=== PATIENT | female | born 1960 | race Caucasian/White ===

== ENCOUNTER 2019-03-17 13:24 | Emergency (ER) | payer BC ==
[~2019-03-17] VITALS: Ht 157.5 cm; Wt 71.2 kg
[~2019-03-17 13:24] MED LIST: AMBIEN10 MG PO; LOMOTIL1 EA; ULTRAM 50MG50 MG PO; Z.0.BENTYL10 MG
[2019-03-17] MEDS ORDERED: EPINEPHRINE HCL 1:1000 1ML 1 MG/ML AMP ONE (13:37)
[2019-03-17] MEDS ORDERED: METHYLPREDNISOLONE SOD SUCC 125 MG/2ML VIAL ONE (13:37)
[2019-03-17] MEDS ORDERED: EPINEPHRINE HCL 1:1000 1ML 1 MG/ML AMP SQ ONE (13:45)
[2019-03-17] MEDS ORDERED: METHYLPREDNISOLONE SOD SUCC 125 MG/2ML VIAL IV ONE (13:45)
[2019-03-17] MEDS ORDERED: PREDNISONE20 MG PO (14:17)
[2019-03-17] MEDS ORDERED: DIFLUCAN150 MG PO (14:18)
[2019-03-17 14:21] VITALS: BP 135/74
== END 2019-03-17 14:27 | disposition home or self-care (01) ==
LOC: FSED 13:24
DX: L50.0 Allergic urticaria (principal); Z87.19 Personal history of other diseases of the digestive system
CPT/HCPCS: 99283; J0171; J2930

== ENCOUNTER → 2020-03-30 | Outpatient (CLI) | payer OTHER ==
[~2020-03-30] MED LIST changes: +COVID-19 VACC, MRNA(MODERNA)/PF 100 MCG/0.5 ML VIAL IM ONE; +DIFLUCAN150 MG PO; +PREDNISONE20 MG PO
== END ==
LOC: VACCPMC 08:25
DX: Z23 Encounter for immunization (principal); Z20.828 Contact with and (suspected) exposure to other viral communicable diseases

== ENCOUNTER → 2020-05-03 | Outpatient (CLI) | payer OTHER | END | DRG 951 | LOC: VACCPMC 07:30 | DX: Z23 Encounter for immunization (principal); Z20.822 Contact with and (suspected) exposure to COVID-19 | CPT/HCPCS: 0012A; 91301 ==

== ENCOUNTER → 2021-04-13 | Outpatient (CLI) | payer BC ==
[~2021-04-13] MED LIST changes: -COVID-19 VACC, MRNA(MODERNA)/PF 100 MCG/0.5 ML VIAL IM ONE; +DIATRIZOATE MEGL/DIATRIZOA SOD 30 ML BTL PO ONE; +IOPAMIDOL 370 MG/ML 200 ML INFUS..BTL INJ ONE; +SODIUM CHLORIDE 0.9% 50ML 50 ML ONE
[2021-04-13 07:52] LABS: CREATININE, SERUM 0.67 mg/dL (0.57-1.11)
== END ==
LOC: CT 06:28
PROVIDERS: ATTEND Surgery
DX: R10.31 Right lower quadrant pain (principal); K76.0 Fatty (change of) liver, not elsewhere classified; K57.30 Diverticulosis of large intestine without perforation or abscess without bleeding
CPT/HCPCS: 36415; 74177; 82565; 84520; Q9967